=== PATIENT | female | born 1985 | race Caucasian/White ===

== ENCOUNTER 2017-03-09 11:33 | Emergency (ER) | payer BC, OTHER ==
[~2017-03-09] VITALS: Ht 165.1 cm; Wt 58.6 kg
[~2017-03-09 11:33] MED LIST: PRED20 PO
[2017-03-09 11:46] VITALS: BP 115/78; PULSE 85; RESP 16; TEMP 98.5; O2SAT 96
[2017-03-09] MEDS ORDERED: DEXA6TAB PO (12:06)
[2017-03-09] MEDS ORDERED: VIST50CA PO (12:06)
--- NOTE | 2017-03-09 12:06 | PD ---
HPI . Swollen lip Chief Complaint: Skin Problem Time Seen by Provider: 11:59 Travel History International Travel<30 days: No Contact w/Intl Traveler<30days: No Traveled to known affect area: No History of Present Illness HPI The patient presents with the acute onset of swelling of her left upper lip. She noted it on awakening this morning. She has taken 2 doses of Benadryl, 50 mg each. She reports no relief of the swelling with she presumes that she is having an allergic reaction to some seasoning and last night. 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 She states that they ate out last night and she thinks that there might have been some garlic in the food. She denies any difficulty breathing. She denies any difficulty swallowing. She does not have any swelling of her oropharynx or tongue. No modifying factors. PFSH Past Medical History Autoimmune Disease: Yes (LUPUS) Diminished Hearing: No Immunizations Current: Yes Tetanus Vaccination: Unknown Influenza Vaccination: No ?: Not LMP: NOW Past Surgical History Surgical History: No Previous Surgery Other Surgery: Yes (SINUS SURGERY) Social History Alcohol Use: No Tobacco Use: Yes (1 pack per week) Substance Use: No Allergies-Medications (Allergen,Severity, Reaction): Coded Allergies: Bee Sting (Verified Allergy, Severe, Anaphylaxis, 03/09/17) Garlic (Verified Allergy, Severe, Anaphylaxis, 03/09/17) Reported Meds & Prescriptions Reported Meds & Active Scripts Active Deltasone (Prednisone) 20 Mg Tab 20 Mg PO DIRECTED 2 TABS PO DAILY FOR 3 DAYS,THEN 1 TAB PO DAILY FOR 3 DAYS. Review of Systems Except as stated in HPI: all other systems reviewed are Neg HENT: Positive: Other Physical Exam Narrative GENERAL: Awake and alert and in no acute distress. SKIN: Warm and dry. HEAD: Atraumatic. Normocephalic. She has edema of the left upper lip. EYES: Pupils equal and round. ENT: There is no edema of the tongue or the oropharynx. NECK: Trachea midline. Neck is supple. CARDIOVASCULAR: Regular rate and rhythm. RESPIRATORY: No accessory muscle use. MUSCULOSKELETAL: No obvious deformities. No edema. NEUROLOGICAL: Awake and alert. No obvious cranial nerve deficits. Motor grossly within normal limits. Normal speech. PSYCHIATRIC: Appropriate mood and affect; insight and judgment normal. Data Data Last Documented VS Vital Signs Date Time Temp Pulse Resp B/P Pulse Ox O2 Delivery O2 Flow Rate FiO2 03/09/17 11:46 98.5 85 16 115/78 96 MDM Medical Decision Making Medical Screen Exam Complete: Yes Emergency Medical Condition: Yes Differential Diagnosis Differential diagnosis includes but is not limited to idiopathic angioedema, allergy ACEI, allergy to other substance Narrative Course Patient presents with swelling of her left upper lip. It has not responded to an appropriate dose of Benadryl. She will be treated with Vistaril and Decadron. She is also instructed to use cool compresses. Diagnosis Primary Impression: Angioedema Qualified Code: T78.3XXA - Angioedema, initial encounter Patient Instructions: Angioedema (ED), General Instructions Med/Other Pt SpecificInfo: Prescription(s) given Scripts Dexamethasone 6 Mg Tab6 Mg PO DAILY 3 Days Ref 0 Prov:Mireya Armendariz MD 03/09/17 Hydroxyzine Pamoate (Vistaril)50 Mg Cap50 Mg PO QID PRN (swollen with) #30 CAP Ref 0 Prov:Mireya Armendariz MD 03/09/17 Disposition: 01 DISCHARGE HOME Condition: Stable Mireya Armendariz MD Mar 09, 2017 12:06
== END 2017-03-09 12:16 | disposition home or self-care (01) ==
LOC: PHEFT 11:33
DX: T78.3XXA Angioneurotic edema, initial encounter (principal); M32.9 Systemic lupus erythematosus, unspecified
CPT/HCPCS: 99284

== ENCOUNTER 2017-08-28 08:06 | Emergency (ER) | payer BC ==
[~2017-08-28] VITALS: Ht 165.1 cm; Wt 56.0 kg
[~2017-08-28 08:06] MED LIST changes: +DEXA6TAB PO; +VIST50CA PO
[2017-08-28 08:13] VITALS: BP 114/57; PULSE 77; RESP 16; TEMP 98.9; O2SAT 98
--- NOTE | 2017-08-28 08:25 | PD ---
HPI Chief Complaint: Allergic/Adverse Reaction Time Seen by Provider: 08:21 Travel History International Travel<30 days: No Contact w/Intl Traveler<30days: No Traveled to known affect area: No History of Present Illness HPI patient is a 32-year-old female presents with itching and swelling to her left upper lip since about 4:00 this morning. Patient denies any difficulty swallowing shortness of breath or choking sensation. She states that she does have allergies to garlic this is happened before with [employer], her made arlen patties last ate and she is unsure as to whether or not there is any garlic in the meal. She's taken Benadryl without relief. No rash no injury and no facial pain. She is a smoker and does have dental caries states that she 's not having an dental pain. Symptoms are mild to moderate, gradually worsening, left upper lip, no radiation. PFSH Past Medical History Autoimmune Disease: Yes (LUPUS) Diminished Hearing: No Immunizations Current: Yes ?: Not Past Surgical History Other Surgery: Yes (SINUS SURGERY) Social History Alcohol Use: No Tobacco Use: Yes (1 pack per week) Substance Use: No Allergies-Medications (Allergen,Severity, Reaction): Coded Allergies: bee venom protein (honey bee) (Unverified Allergy, Severe, Anaphylaxis, ) garlic (Unverified Allergy, Severe, Anaphylaxis, 08/28/17) Reported Meds & Prescriptions Reported Meds & Active Scripts Active Epipen 2-Jj Inj (Epinephrine) 0.3 Mg/0.3 Ml Pfpen 0.3 Mg IM ONCE PRN Prednisone 20 Mg Tab 60 Mg PO DAILY 5 Days Review of Systems Except as stated in HPI: all other systems reviewed are Neg Physical Exam Narrative GENERAL: Well-developed well-nourished no obvious distress SKIN: Focused skin assessment warm/dry. HEAD: Atraumatic. Normocephalic. EYES: Pupils equal and round. No scleral icterus. No injection or drainage. ENT: No nasal bleeding or discharge. Mucous membranes pink and moist. There is a minimal amount of swelling to the left upper lip, some with the maxillary surface as well, oropharynx is clear, no edema no erythema. She swallows easily without any pain. NECK: Trachea midline. No JVD. CARDIOVASCULAR: Regular rate and rhythm. No murmur appreciated. RESPIRATORY: No accessory muscle use. Clear to auscultation. Breath sounds equal bilaterally. GASTROINTESTINAL: Abdomen soft, non-tender, nondistended. Hepatic and splenic margins not palpable. MUSCULOSKELETAL: No obvious deformities. No clubbing. No cyanosis. No edema. NEUROLOGICAL: Awake and alert. No obvious cranial nerve deficits. Motor grossly within normal limits. Normal speech. PSYCHIATRIC: Appropriate mood and affect; insight and judgment normal. Data Data Last Documented VS Vital Signs Date Time Temp Pulse Resp B/P (MAP) Pulse Ox O2 Delivery O2 Flow Rate FiO2 08/28/17 08:13 98.9 77 16 114/57 (76) 98 Orders Orders Ed Discharge Order (08/28/17 08:32) Prednisone (Deltasone) (08/28/17 08:45) Famotidine (Pepcid) (08/28/17 08:45) MDM Medical Decision Making Medical Screen Exam Complete: Yes Emergency Medical Condition: Yes Differential Diagnosis age edema, allergic reaction, impending airway failure highly unlikely. Narrative Course Patient roomed emerged permit, appears well in no distress, she has some minimal amount of edema to the left side of her face, is not first time this happened to her before, was given steroids and Pepcid in the emergency department at the [facility] she took prior to arrival, offered to watch for some time in the emergency department. Discussed that since the symptoms been going on since early in the morning she consider going home. She would rather go home this time. She seems quite reliable to return to the emergency department. Discussed at length with her signs symptoms that should prompt emergent reevaluation in the ER and when to call 911, discussed the EpiPen use for her and I have prescribed, will do short course of prednisone. She is stable for discharge at this time Diagnosis Primary Impression: Angioedema Qualified Codes: T78.3XXA - Angioneurotic edema, initial encounter Med/Other Pt SpecificInfo: Prescription(s) given Scripts Epinephrine Inj (Epipen 2-Jj Inj) 0.3 Mg/0.3 Ml Pfpen 0.3 MG IM ONCE Y for ALLERGIC REACTION, #1 PACK 0 Refills Prov: Manuel Snowden MD 08/28/17 Prednisone (Prednisone) 20 Mg Tab 60 MG PO DAILY for 5 Days, #15 TAB 0 Refills Prov: Maneul Snowden MD 08/28/17 Disposition: 01 DISCHARGE HOME Condition: Stable Manuel Snowden MD Aug 28, 2017 08:25
[2017-08-28] MEDS ORDERED: EPIP0.3I IM (08:31)
[2017-08-28] MEDS ORDERED: PRED20 PO (08:31)
[2017-08-28] MEDS ORDERED: FAMOTIDINE 20 MG TAB PO ONE (08:45)
[2017-08-28] MEDS ORDERED: predniSONE 20 MG TAB PO ONE (08:45)
== END 2017-08-28 08:53 | disposition home or self-care (01) ==
LOC: PHED 08:06
DX: T78.3XXA Angioneurotic edema, initial encounter (principal); M32.9 Systemic lupus erythematosus, unspecified; Z72.0 Tobacco use
CPT/HCPCS: 99284; J7512